=== PATIENT | female | born 1945 | race Hispanic/Latino ===

== ENCOUNTER → 2020-07-06 | Day surgery (SDC) | payer MEDICARE, OTHER ==
[2020-07-01 14:07] LABS: BASOPHILS # (AUTO) 0.1 (0.0-0.1); BASOPHILS % 0.5 % (0.0-1.0); EOSINOPHILS # (AUTO) 0.2 (0.0-0.4); EOSINOPHILS % 2.2 % (0.0-6.0); HEMATOCRIT 36.9 % (34.2-44.1); HEMOGLOBIN 11.9 g/dL (12.0-16.0); LYMPHOCYTES # (AUTO) 2.2 (1.0-3.2); LYMPHOCYTES % 21.8 % (18.0-39.1); MEAN CORPUSCULAR HEMOGLOBIN 30.2 pg (28-32); MEAN CORPUSCULAR HGB CONC 32.2 g/dL (31-35); MEAN CORPUSCULAR VOLUME 93.7 fL (81-99); MONOCYTES # (AUTO) 0.7 (0.2-0.8); MONOCYTES % 6.7 % (4.4-11.3); NEUTROPHILS # (AUTO) 6.8 (2.1-6.9); NEUTROPHILS % 68.4 % (38.7-80.0); PLATELET COUNT 256 x10e3/uL (140-360); RED BLOOD COUNT 3.94 x10e6/uL (3.6-5.1); RED CELL DISTRIBUTION WIDTH 14.1 % (11.7-14.4)
--- NOTE | 2020-07-01 15:15 | Diagnostic Imaging Report ---
EXAMINATION: PA and lateral views of the chest. COMPARISON: None CLINICAL HISTORY: Preoperative examination for orthopedic surgery DISCUSSION: The lungs are well inflated. No focal airspace consolidation, pleural effusion, or pneumothorax. Cardiomediastinal contour and pulmonary vasculature are within normal limits. No acute osseous abnormalities. IMPRESSION: No acute cardiopulmonary abnormalities. Signed by: Dr. Rafi Stroud M.D. on 07/01/2020 3:12 PM
[~2020-07-06] MED LIST: ACETAMINOPHEN325 M1 PO; BP MED PO; BUPIVACAINE 0.25% 30ML SDV INJ ONE; BUPIVACAINE HCL 0.5% INJ 30 ML VIAL INJ ONE; CEFAZOLIN SOD 1 GM/NS 50ML 100 ML IV ONE; DEXAMETHASONE SOD PHOS INJ 4 MG/ML VIAL ONE; EPHEDRINE SULFATE INJ 50 MG/ML VIAL ONE; FENTANYL CITRATE/PF 100MCG/2 ML INJ ONE; IBUPROFEN 800MG/ 200ML 200 ML IV ONE; KETOROLAC TROMETHAMINE 30 MG/ML VIAL ONE; LIDOCAINE HCL 2% LOCAL INJ 5 ML SDV VIAL INJ ONE; LISINOPRIL-HCT1 EACH PO; MIDAZOLAM HCL 2 MG/2 ML VIAL ONE; MORPHINE SULFATE INJ 10 MG/ML ONE; ONDANSETRON HCL INJ 2MG/ML 2ML 2 MG/ML VIAL ONE; PROPOFOL IV EMULSION 10 MG/ML 20 ML VIAL ONE; ROPIVACAINE 0.5% 5 MG/ML 30 ML SDV ONE; SEVOFLURANE INHAL SOLN 250 ML PEN BTL ONE; TYLENOL PO
[2020-07-06 13:21] LABS: ANION GAP 14.1 mmol/L (8-16); CALCIUM 9.4 mg/dL (8.4-10.2); CREATININE, SERUM 1.09 mg/dL (0.57-1.11); POTASSIUM 4.1 mmol/L (3.5-5.1)
[2020-07-06 18:44] VITALS: BP 141/87
--- NOTE | 2020-07-12 21:38 | Operative Report ---
DATE OF PROCEDURE: 07/06/2020 SURGEON: Mikel Adam MD PREOPERATIVE DIAGNOSES: 1. Subacute right pilon fracture. 2. Right displaced fibular fracture. 3. Chronic subluxation of the tibiotalar joint. POSTOPERATIVE DIAGNOSES: 1. Subacute right pilon fracture. 2. Right displaced fibular fracture. 3. Chronic subluxation of the tibiotalar joint. PROCEDURES PERFORMED: 1. The patient underwent an open reduction and takedown of an impending malunion of the right fibula. 2. Open reduction and takedown of an impending malunion of the right pilon fracture. 3. Arthrotomy with removal of intra-articular scar tissue. 4. An open reduction of the tibiotalar joint. 5. An open reduction of a comminuted right fibular fracture. 6. An open reduction of a right pilon fracture. [employer]: There was no programs assistant. ANESTHESIA: General endotracheal intubation anesthesia. IV FLUIDS: Per the anesthesia record. DESCRIPTION OF PROCEDURE: Ms. Ortiz was taken to the operating room and placed in supine position on the operating table. Following induction of general anesthesia as well as endotracheal intubation, the patient's right lower extremity was examined under anesthesia. She was found to have swelling and bruising about her right ankle. Fluoroscopic evaluation of the ankle joint demonstrated a subluxed tibiotalar joint with the talus being fixed in a posterior position in relation to the tibia. There was also significant destruction of the tibial plafond. There was a comminuted and displaced fibular fracture. The soft tissues were able to be wrinkled at the time of surgery. The patient had palpable pulses. The patient's lower extremity was prepped and draped in standard surgical fashion. The case was begun with an attempt to closed reduction of the patient's ankle mortise. The foot was placed in plantar flexion and gentle distraction was applied across the tibiotalar joint. This failed to provide mobility to the talus and failed to reduce the tibiotalar joint. The case was then begun by creating incision over the fibula laterally. This incision was carried through the skin only. Blunt dissection was used to deepen the incision and the superficial peroneal nerve was protected throughout the remainder of the case. Further dissection exposed the patient's comminuted fibular fracture. The fracture fragments were mobilized. The dissection was carried posteriorly to the posterior tibia, but the majority of the displaced fracture fragment was located more along the medial side. With mobilization of the fibula, attempts were again made to reduce the tibiotalar joint, but the tibiotalar joint would not reduce. A curvilinear incision was then created over the medial aspect of the ankle joint. This incision was carried through skin only. Blunt dissection was used to deepen the incision and the saphenous vein was identified and mobilized. This was protected throughout the remainder of the case. The dissection was carried posteriorly and the patient's fracture was identified. Using careful blunt dissection, the posterior medial and posterior fracture fragments were mobilized. Again, attempts were made to reduce the tibiotalar joint and this again failed. Through the anterior arm of this medial incision, an open arthrotomy was performed. Significant scar tissue was found within the joint. This scar was resected. A [place] was then used to disengage the talus from the distal tibia. The talus was then mobilized anteriorly and with gentle distraction, the tibiotalar joint was reduced. Small wounds were then copiously irrigated. Attention was returned to the fibula and the patient's fibula was brought out to length. A locking plate was chosen and contoured to fit the fibula. This plate was then affixed to the fibula with combinations of cortical and locking screws. Fluoroscopic evaluation of the patient's ankle joint at this time demonstrated return of the length of the fibula and continued reduction of the tibiotalar joint. Attention was then turned to the medial and posterior medial tibial injury. These fractures were mobilized and the posterior fracture fragment was brought distally to reduce the articular surface. This was assessed fluoroscopically as well as under direct vision. K-wires were used to provisional fixation of this fracture in its reduced position. The posterior medial aspect of the medial malleolus was also reduced at this time and a periarticular tibial plate was then chosen. This was contoured to the medial aspect of the tibia. Blunt dissection was used to elevate the periosteum tissues along the medial surface of the tibia and the plate was slid beneath the skin and periosteal tissues over the position of the fracture. Combinations of cortical and locking screws were then used to stabilize the posterior and medial fracture fragments in their reduced positions. Static incisions were created through the skin to allow for cortical fixation through the proximal aspect of the plate. Repeat fluoroscopic evaluation of the ankle joint demonstrated reduction of the tibiotalar joint with reestablishment of the articular surface. The ankle mortise was reduced and the fibula was out to length. All wounds were copiously irrigated. The soft tissues were closed in a multilayer fashion. Sterile dressings were applied as well as a well-padded multi-sided splint. The patient was then awakened and taken to postanesthesia care unit in stable condition. This case was particularly difficult given the delay in getting the patient to surgery and the extensive dissection that were required to reduce the tibiotalar joint and allow appropriate fracture fixation. MD AASHISH Story/TELLY /[id number]
== END | disposition home or self-care (01) ==
LOC: OR 09:42
PROVIDERS: ATTEND Specialist
DX: S82.871A Displaced pilon fracture of right tibia, initial encounter for closed fracture (principal); M24.471 Recurrent dislocation, right ankle; I10 Essential (primary) hypertension; E78.5 Hyperlipidemia, unspecified; K21.9 Gastro-esophageal reflux disease without esophagitis; X58.XXXA Exposure to other specified factors, initial encounter; Y92.008 Other place in unspecified non-institutional (private) residence as the place of occurrence of the external cause; Z01.810 Encounter for preprocedural cardiovascular examination; Z01.812 Encounter for preprocedural laboratory examination; Z01.818 Encounter for other preprocedural examination; Z11.59 Encounter for screening for other viral diseases
CPT/HCPCS: 27828; 36415 ×2; 71046; 76000; 80048; 85025; 93005; C1713 ×12; J0690; J1100; J1885; J2001; J2250; J2270; J2405; J2704; J2795; J3010; U0002

== ENCOUNTER 2025-06-30 20:17 | Emergency (ER) | payer MEDICARE, OTHER ==
[~2025-06-30] VITALS: Ht 162.6 cm; Wt 89.8 kg
[~2025-06-30 20:17] MED LIST changes: -BUPIVACAINE 0.25% 30ML SDV INJ ONE; -BUPIVACAINE HCL 0.5% INJ 30 ML VIAL INJ ONE; -CEFAZOLIN SOD 1 GM/NS 50ML 100 ML IV ONE; -DEXAMETHASONE SOD PHOS INJ 4 MG/ML VIAL ONE; -EPHEDRINE SULFATE INJ 50 MG/ML VIAL ONE; -FENTANYL CITRATE/PF 100MCG/2 ML INJ ONE; -IBUPROFEN 800MG/ 200ML 200 ML IV ONE; -KETOROLAC TROMETHAMINE 30 MG/ML VIAL ONE; -LIDOCAINE HCL 2% LOCAL INJ 5 ML SDV VIAL INJ ONE; -MIDAZOLAM HCL 2 MG/2 ML VIAL ONE; -MORPHINE SULFATE INJ 10 MG/ML ONE; -ONDANSETRON HCL INJ 2MG/ML 2ML 2 MG/ML VIAL ONE; -PROPOFOL IV EMULSION 10 MG/ML 20 ML VIAL ONE; -ROPIVACAINE 0.5% 5 MG/ML 30 ML SDV ONE; -SEVOFLURANE INHAL SOLN 250 ML PEN BTL ONE
[2025-06-30 20:30] VITALS: TEMP 97.7
[2025-06-30 21:00] LABS: BASOPHILS % 0.1 % (0.0-1.0); EOSINOPHILS % 3.0 % (0.0-6.0); LYMPHOCYTES % 18.5 % (18.0-39.1); MONOCYTES % 6.9 % (4.4-11.3); NEUTROPHILS % 71.1 % (38.7-80.0); RED CELL DISTRIBUTION WIDTH 14.6 % (11.7-14.4)
[2025-06-30 21:26] LABS: EST GLOMERULAR FILTRATION RATE 39 ML/MIN (>=60)
[2025-06-30] MEDS ORDERED: RISPERIDONE1 MG PO (21:37)
[2025-06-30] MEDS ORDERED: MULTIPLE VITAM1 EAC1 PO (21:37)
[2025-06-30] MEDS ORDERED: LEVOTHYROXINE50 MCG PO (21:37)
[2025-06-30] MEDS ORDERED: calicum PO (21:37)
[2025-06-30] MEDS ORDERED: SMOOTHLAX17 GM PO (21:37)
[2025-06-30] MEDS ORDERED: ALEVE220 M1 PO (21:37)
[2025-06-30] MEDS ORDERED: MUPIROCIN22 GM TOP (21:37)
[2025-06-30] MEDS ORDERED: VESICARE5 MG PO (21:37)
[2025-06-30] MEDS ORDERED: FISH OIL 1,2001 EACH PO (21:37)
[2025-06-30] MEDS ORDERED: BENZTROPINE MESY1 MG PO (21:37)
[2025-06-30] MEDS ORDERED: LISINOPRIL5 MG PO (21:37)
[2025-06-30] MEDS ORDERED: BUSPIRONE HCL10 MG PO (21:37)
[2025-06-30] MEDS ORDERED: DEPAKOTE ER500 MG PO (21:37)
[2025-06-30] MEDS ORDERED: BENZTROPINE MESYLATE 1 MG TAB PO SCH (22:00)
[2025-06-30] MEDS ORDERED: DEPAKOTE DELAYED-RELEASE TAB 500 MG PO SCH (22:00)
[2025-06-30] MEDS ORDERED: IOPAMIDOL 370 MG/ML 100 ML INFUS..BTL INJ ONE (22:03)
[2025-06-30] MEDS: ONDANSETRON HCL INJ 2MG/ML 2ML 2 MG/ML VIAL IV STA (22:09)
[2025-06-30] MEDS: Morphine 4mg INJECTION 4 MG/ML INJ IV STA (22:09)
[2025-06-30] MEDS: SODIUM CHLORIDE 0.9% 1000ML 1,000 ML IV STA (22:09)
[2025-06-30 22:30] VITALS: PULSE 84; RESP 15
[2025-06-30] MEDS ORDERED: DICYCLOMINE HCL10 MG PO (22:56)
[2025-06-30 23:26] VITALS: BP 147/75; PULSE 78; RESP 15; TEMP 98.3; O2SAT 100
== END 2025-06-30 23:15 | disposition home or self-care (01) ==
LOC: ER 20:23
DX: R10.13 Epigastric pain (principal); R11.2 Nausea with vomiting, unspecified; K57.90 Diverticulosis of intestine, part unspecified, without perforation or abscess without bleeding; K76.0 Fatty (change of) liver, not elsewhere classified; K44.9 Diaphragmatic hernia without obstruction or gangrene; I10 Essential (primary) hypertension; R94.31 Abnormal electrocardiogram [ECG] [EKG]
CPT/HCPCS: 36415; 74177; 80053; 82550; 83690; 84484; 85025; 93005; 99284; J2270; J2405; J7030; Q9967